=== PATIENT | female | born 1980 | race African-American/Black ===

== ENCOUNTER 2017-12-25 14:49 | Emergency (ER) | payer SELFPAY ==
[~2017-12-25] VITALS: Ht 157.5 cm; Wt 91.0 kg
[~2017-12-25 14:49] MED LIST: LISI-604
[2017-12-25 15:12] VITALS: BP 133/81
[2017-12-25 16:33] LABS: CLARITY URINE CLOUDY (CLEAR); COLOR URINE YELLOW (YELLOW); KETONES URINE NEGATIVE (NEGATIVE); LEUKOCYTE ESTERASE URINE 1+ (NEGATIVE); NITRITE URINE NEGATIVE (NEGATIVE); OCCULT BLOOD URINE NEGATIVE (NEGATIVE); PROTEIN URINE NEGATIVE (NEGATIVE); SPECIFIC GRAVITY URINE 1.023 (1.005-1.030)
== END 2017-12-26 | disposition left against medical advice (07) ==
LOC: ER 18:37
DX: M54.5 Low back pain (principal)
CPT/HCPCS: 81003; 81025; 99283